=== PATIENT | female | born 1990 | race Caucasian/White ===

== ENCOUNTER 2017-06-03 20:30 | Emergency (ER) | payer OTHER, MEDICAID ==
[2017-06-03 20:37] VITALS: TEMP 98.1
[2017-06-03] MEDS ORDERED: NS 1,000 ML IV ONE (21:45)
[2017-06-03] MEDS ORDERED: ONDANSETRON 4 MG/2 ML VIAL ONE (21:45)
[2017-06-03] MEDS ORDERED: ONDANSETRON 4 MG/2 ML VIAL IVP ONE ×2 (21:45→22:50)
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
[2017-06-03] MEDS ORDERED: HYDROmorphONE/DILAUDID 1 MG/ML INJ IVP ONE (22:11)
[2017-06-03 22:27] LABS: PLATELET COUNT 254 10^3/uL (150-400)
[2017-06-03] MEDS ORDERED: IOPAMIDOL (ISOVUE 370) 100 ML BTL IV ONE (23:19)
[2017-06-03] MEDS ORDERED: PROMETHAZINE HCL 25 MG/ML INJ IVP ONE (23:25)
[2017-06-04] MEDS ORDERED: DEXAMETHASONE 10 MG/ML VIAL IVP ONE (00:01)
[2017-06-04] MEDS ORDERED: KETOROLAC 30 MG/1 ML SDV IVP ONE (00:01)
[2017-06-04] MEDS ORDERED: LORazepam 2 MG/ML INJ IVP ONE (00:01)
[2017-06-04 01:07] VITALS: BP 105/53; PULSE 78; RESP 20; O2SAT 98
== END 2017-06-04 01:16 | disposition home or self-care (01) ==
DX: R51 Headache (principal)
CPT/HCPCS: 96374; J1100; J1170; J1885; J2405; J2550; Q9967